=== PATIENT | male | born 1955 | race African-American/Black ===

== ENCOUNTER 2019-03-29 12:06 | Emergency (ER) | payer MEDICAID, SELFPAY ==
--- NOTE | 2019-03-29 12:39 | NUR ---
NO ANSWER X 1 TO TRIAGE.
--- NOTE | 2019-03-29 12:42 | NUR ---
CALLED NO ANSWER
--- NOTE | 2019-03-29 12:47 | NUR ---
NO ANSWER X 3 TO TRIAGE.
== END 2019-03-29 12:56 | disposition left against medical advice (07) ==
LOC: ED 12:50
DX: Z53.21 Procedure and treatment not carried out due to patient leaving prior to being seen by health care provider (principal)

== ENCOUNTER 2019-03-29 13:24 | Emergency (ER) | payer OTHER, SELFPAY ==
[~2019-03-29] VITALS: Ht 180.3 cm; Wt 62.6 kg
--- NOTE | 2019-03-29 15:14 | NUR ---
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
--- NOTE | 2019-03-29 15:22 | NUR ---
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
[2019-03-29 15:52] LABS: BASOPHILS # (AUTO) 0.11 x10^3/uL (0-0.1); BASOPHILS % (AUTO) 1 % (0-1); EOSINOPHILS # (AUTO) 0.05 x10^3/uL (0-0.4); EOSINOPHILS % (AUTO) 1 % (1-7); LYMPHOCYTES # (AUTO) 1.39 x10^3/uL (1-3.4); LYMPHOCYTES % (AUTO) 14 % (22-44); MD NO; MEAN CORPUSCULAR HGB CONC 32.3 g/dL (33.2-36.2); MEAN CORPUSCULAR VOLUME 77.6 fL (81-97); MEAN PLATELET VOLUME 8.8 fL (7.4-10.4); MONOCYTES # (AUTO) 0.76 x10^3/uL (0.2-0.8); MONOCYTES % (AUTO) 8 % (2-9); NEUTROPHILS # (AUTO) 7.68 x10^3/uL (1.8-6.8); NEUTROPHILS % (AUTO) 77 % (42-75); PLATELET COUNT 337 x10^3/uL (130-400); RED BLOOD COUNT 5.16 x10^6/uL (4.38-5.82); RED CELL DISTRIBUTION WIDTH 14.1 % (9.4-14.8)
[2019-03-29 15:53] LABS: ALBUMIN 3.4 g/dL (3.4-5.0); ANION GAP 7 mmol/L (5-15); CALCIUM 8.7 mg/dL (8.5-10.1); CHLORIDE 111 mmol/L (98-107); CREATININE 1.38 mg/dL (0.7-1.3)
[2019-03-29 15:58] LABS: TROPONIN I < 0.015 ng/mL (0.000-0.045)
[2019-03-29 16:48] VITALS: BP 124/84
== END 2019-03-29 16:50 | disposition home or self-care (01) ==
LOC: ED 16:40
DX: R55 Syncope and collapse (principal); E86.0 Dehydration; I51.7 Cardiomegaly; J45.909 Unspecified asthma, uncomplicated
CPT/HCPCS: 36415; 71045; 80048; 82040; 84484; 85025; 93005; 99285

== ENCOUNTER 2019-10-04 22:16 | Emergency (ER) | payer MEDICARE, MEDICAID ==
[~2019-10-04] VITALS: Ht 177.8 cm; Wt 75.0 kg
[2019-10-04 22:18] VITALS: BP 125/87
--- NOTE | 2019-10-04 22:24 | NUR ---
PATIENT BROUGHT TO ROOM VIA WHEELCHAIR
--- NOTE | 2019-10-04 22:26 | NUR ---
PATIENT REFUSING TO WEAR GOWN, PATIENT STATING "DO YOU THINK IM A STUPID NIGGA, IM IN THE [place], THEY CALL ME [employer] IN [place]" "LEAVE ME ALONE LITTLE KID, YOU GOT NOTHING FOR ME, NOT FOR THIS BITCH". THEN PATIENT STATED "IM IN THE [employer], YOU DONT KNOW ME, I [employer], LEAVE ME ALONE"
[2019-10-04] MEDS ORDERED: IBUPROFEN 200 MG TABLET ONE (22:46)
[2019-10-04] MEDS ORDERED: METHOCARBAMOL 750 MG TABLET ONE (22:46)
--- NOTE | 2019-10-04 22:55 | NUR ---
MEDICATED PER EMAR. PATIENT REFUSED MOTRIN
[2019-10-04] MEDS ORDERED: METHOCARBAMOL 750 MG TABLET PO ONE (23:00)
[2019-10-04] MEDS ORDERED: IBUPROFEN 200 MG TABLET PO ONE (23:00)
--- NOTE | 2019-10-04 23:40 | NUR ---
YUN MARIE IN TO D/C PT. PT. STARTED SHOUTING IN YUN MARIE'S FACE STATING "GET THE FUCK UP OUTTA HER WHITE BOY, YOU FUCKING PIECE OF SHIT, YOU JUST GONNA GIVE ME SOME FUCKING IBUPROFEN AND TELL ME I AM FINE TO LEAVE FUCK YOU YOU FUCKING WHITE PIECE OF SHIT." PT. AMBULATORY OUT OF ED WITH STEADY GAIT. SHOUTING AT ALL STAFF "YOU FUCKING WHITE PIECES OF SHIT, ALL OF YOU" ON HIS WAY OUT.
== END 2019-10-04 23:44 | disposition home or self-care (01) ==
LOC: ED 22:41
DX: M79.652 Pain in left thigh (principal); J45.909 Unspecified asthma, uncomplicated
CPT/HCPCS: 99283

== ENCOUNTER 2019-12-06 14:19 | Emergency (ER) | payer MEDICARE, MEDICAID ==
[~2019-12-06] VITALS: Ht 175.3 cm; Wt 56.8 kg
[2019-12-06 14:27] VITALS: BP 106/70
[2019-12-06] MEDS ORDERED: ACETAMINOPHEN 500 MG TABLET PO ONE (15:00)
[2019-12-06] MEDS ORDERED: ACETAMINOPHEN 500 MG TABLET ONE (15:02)
== END 2019-12-06 15:13 | disposition home or self-care (01) ==
LOC: ED 14:28
DX: M54.5 Low back pain (principal); G89.29 Other chronic pain; J45.909 Unspecified asthma, uncomplicated
CPT/HCPCS: 99283

== ENCOUNTER 2019-12-06 21:34 | Emergency (ER) | payer MEDICARE, MEDICAID ==
[~2019-12-06] VITALS: Ht 177.8 cm; Wt 50.0 kg
[2019-12-06 21:41] VITALS: BP 109/61
[2019-12-06] MEDS ORDERED: HYDROcodone/APAP 5/325 TABLET PO STA (22:08)
[2019-12-06] MEDS ORDERED: HYDROcodone/APAP 5/325 TABLET ONE (22:11)
== END 2019-12-06 22:22 | disposition home or self-care (01) ==
LOC: ED 22:03
DX: M54.5 Low back pain (principal); J45.909 Unspecified asthma, uncomplicated
CPT/HCPCS: 99283